=== PATIENT | male | born 1985 | race African-American/Black ===

== ENCOUNTER 2018-07-20 06:07 | Emergency (ER) | payer OTHER ==
[~2018-07-20] VITALS: Ht 182.9 cm; Wt 83.9 kg
[~2018-07-20 06:07] MED LIST: BACTRIM DS TAB1 EAC1 ORAL; CEPHALEXIN500 MG ORAL; PHENAZOPYRIDIN100 MG ORAL
[2018-07-20] MEDS ORDERED: HYDROCHLOROTHIA25 MG ORAL (06:20)
[2018-07-20] MEDS ORDERED: LISINOPRIL20 MG ORAL (06:20)
[2018-07-20] MEDS ORDERED: HYDROCHLOROTH12.5 MG ORAL (06:20)
[2018-07-20 06:30] VITALS: BP 151/93
[2018-07-20 06:42] LABS: APPEARANCE,URINE CLEAR; BILIRUBIN, URINE NEGATIVE (NEGATIVE); GLUCOSE, URINE (UA) NEGATIVE (NEGATIVE); KETONES,URINE NEGATIVE (NEGATIVE); LEUKOCYTE ESTERASE ,URINE 1+ (NEGATIVE); PH,URINE 5 (4.5-8.0); PROTEIN,URINE 4+ (NEGATIVE); UROBILINOGEN,URINE NORMAL MG/DL (0.0-1.0)
[2018-07-20] MEDS ORDERED: Cephalexin 500mg cap ORAL ONE (06:45)
[2018-07-20] MEDS ORDERED: PHENAZOPYRIDIN200 MG ORAL (06:45)
[2018-07-20] MEDS ORDERED: Naproxen 500mg tab ORAL ONE (06:45)
[2018-07-20] MEDS ORDERED: CEPHALEXIN500 MG ORAL (06:45)
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
[2018-07-20] MEDS ORDERED: Naproxen 500mg tab ONE (07:02)
[2018-07-20] MEDS ORDERED: Cephalexin 500mg cap ONE (07:02)
[2018-07-20 07:03] LABS: COLOR,URINE ORANGE
[2018-07-20 07:04] LABS: NITRITE,URINE NEGATIVE (NEGATIVE)
[2018-07-20 07:30] VITALS: BP 145/89
[2018-07-20] MEDS ORDERED: Morphine Sulfate 4mg/ml Inj (IV/IM USE ONLY) IM ONE (07:30)
[2018-07-20] MEDS ORDERED: PERCOCET 5-3251 EACH ORAL (07:30)
[2018-07-20] MEDS ORDERED: Morphine Sulfate 4mg/ml Inj (IV/IM USE ONLY) ONE (07:37)
[2018-07-20 07:50] VITALS: BP 145/89
== END 2018-07-20 07:50 | disposition home or self-care (01) ==
LOC: EMR 06:32
DX: N39.0 Urinary tract infection, site not specified (principal); Z93.3 Colostomy status; I10 Essential (primary) hypertension; Q79.4 Prune belly syndrome
CPT/HCPCS: 81003; 96372; 99283; J2270

== ENCOUNTER 2018-09-15 14:11 | Emergency (ER) | payer OTHER ==
[~2018-09-15] VITALS: Ht 182.9 cm; Wt 81.6 kg
[~2018-09-15 14:11] MED LIST changes: +HYDROCHLOROTH12.5 MG ORAL; +HYDROCHLOROTHIA25 MG ORAL; +LEVAQUIN500 MG ORAL; +LISINOPRIL20 MG ORAL; +PERCOCET 5-3251 EACH ORAL; +PHENAZOPYRIDIN200 MG ORAL; +TRIM
[2018-09-15 14:45] LABS: APPEARANCE,URINE CLOUDY; BILIRUBIN, URINE NEGATIVE (NEGATIVE); GLUCOSE, URINE (UA) NEGATIVE (NEGATIVE); KETONES,URINE NEGATIVE (NEGATIVE); LEUKOCYTE ESTERASE ,URINE 3+ (NEGATIVE); NITRITE,URINE POSITIVE (NEGATIVE); PH,URINE 6.5 (4.5-8.0); PROTEIN,URINE 4+ (NEGATIVE); UROBILINOGEN,URINE NORMAL MG/DL (0.0-1.0)
[2018-09-15] MEDS ORDERED: Lidocaine 1% MPF 10mg/ml 5ml INJ ONE (14:45)
[2018-09-15] MEDS ORDERED: NAPROXEN500 M2 ORAL (14:56)
--- NOTE | 2018-09-15 14:56 | Emergency Room Report ---
History of Present Illness General Chief Complaint: Male Urogenital Problems Source: Patient Present Illness HPI 32-year-old male with history of recurrent urinary tract infection here complaining of painful urination 2 days and penile discharge. Patient reports that he was sexually active with a new partner not using condoms 2 days ago. Nasal suprapubic pain however denies flank pain, nausea, vomiting, abdominal pain. Patient reports that she has been getting recurrent urinary tract infections since the age of 8. Denies any visits to urologist and reports that he always gets treated with antibiotic, pain medication. She is rating pain 10 out of 10. CURES was done and showed extensive history of oxycodone use with the latest refill on August 12. Patient reports that he has always been prescribed oxycodone and different emergency rooms for his pain secondary to his UTIs. 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 Hx Hypertension: Yes Hx Pacemaker: No Hx Asthma: No Hx COPD: No Hx Diabetes: No Hx Cancer: No Hx Dialysis: No Hx Neurological Problems: No Hx Cerebrovascular Accident: No Hx Seizures: No Review of Systems All Other Systems: negative except mentioned in HPI Physical Exam Vital Signs Date Time Temp Pulse Resp B/P (MAP) Pulse Ox O2 Delivery O2 Flow Rate FiO2 09/15/18 14:13 98.1 87 20 136/79 96 Room Air Sp02 EP Interpretation: reviewed, normal General Appearance: normal inspection, well appearing, no apparent distress, alert Head: normocephalic, atraumatic Eyes: bilateral eye normal inspection, bilateral eye PERRL ENT: normal ENT inspection, normal pharynx Neck: normal inspection, supple Respiratory: normal inspection, lungs clear, no wheezing Cardiovascular #1: normal inspection, no edema, no murmur Gastrointestinal: normal inspection, non tender, soft Rectal: deferred Genitourinary: no CVA tenderness Musculoskeletal: normal inspection, digits/nails normal Neurologic: normal inspection, alert, responsive, sensory intact Psychiatric: normal inspection, judgement/insight normal Skin: normal inspection, normal color, no rash Lymphatic: normal inspection, no adenopathy Medical Decision Making PA Attestation all diagnoses and treatment plans reviewed discuss medicine was an physician Dr. Millan Diagnostic Impression: Primary Impression: UTI (urinary tract infection) Additional Impressions: Penile discharge Opiate dependence Drug-seeking behavior ER Course 32-year-old male with history of recurrent urinary tract infection here complaining of painful urination 2 days and penile discharge. Patient reports that he was sexually active with a new partner not using condoms 2 days ago. Nasal suprapubic pain however denies flank pain, nausea, vomiting, abdominal pain. Patient reports that she has been getting recurrent urinary tract infections since the age of 8. Denies any visits to urologist and reports that he always gets treated with antibiotic, pain medication. She is rating pain 10 out of 10. CURES was done and showed extensive history of oxycodone use with the latest refill on August 12. Patient reports that he has always been prescribed oxycodone and different emergency rooms for his pain secondary to his UTIs. Ddx considered but are not limited to UTI, pylonephritis, prostatitis, chroinic UTI Vital signs: are WNL, pt. is afebrile H&PE are most consistent with UTI, opiate dependence ORDERS: rocephin, 1g, bactrim DS x7d, Nparoxen, UA, urine cx GC chlamydia ED INTERVENTIONS: None required at this time. DISCHARGE: At this time pt. is stable for d/c to home. Will provide printed patient care instructions, and any necessary prescriptions. Care plan and follow up instructions have been discussed with the patient prior to discharge. patient has been explained that naproxen should be enough for his pain level patient gets consisting on having his usual pain medication which is oxycodone. patient if insisting on getting a prescription for oxycodone he has an appointment with his primary care provider tomorrow. he reports that he usually is able to get his oxycodone from the emergency room and refuses to go see a urologist CURES showed extensive oxycodone hx from different providers. patient is yelling and saying he is not getting right tx. patient given dicharge papers, stable to leave. abx enough for UTI and possible STI Last Vital Signs Date Time Temp Pulse Resp B/P (MAP) Pulse Ox O2 Delivery O2 Flow Rate FiO2 09/15/18 14:13 98.1 87 20 136/79 96 Room Air Disposition: HOME, SELF-CARE Condition: Stable Scripts Trimethoprim/Sulfamethoxazole (Bactrim Ds Tablet) 1 Each Tablet 1 TAB ORAL TWICE A DAY for 7 Days, #14 TAB Prov: Maday Huffman 09/15/18 Naproxen* (NAPROXEN*) 500 Mg Tablet 500 MG ORAL TWICE A DAY, #30 TAB Prov: Maday Huffman 09/15/18 Patient Instructions: Urethritis, Adult, Urinary Tract Infection Additional Instructions: follow with her primary care provider and possible referral to urologist due to recurrent urinary tract infections Maday Huffman Sep 15, 2018 14:56
[2018-09-15 14:58] LABS: COLOR,URINE YELLOW
[2018-09-15] MEDS ORDERED: BACTRIM-DS1 EA ORAL (15:13)
[2018-09-15 15:38] VITALS: BP 136/79
--- NOTE | 2018-09-15 15:39 | NUR ---
ED Nurse Note:pt. was treated by er PA he received d/c instruxctions with prescriptions and left ER with steady gait
[2018-09-15 15:45] VITALS: BP 136/79
== END 2018-09-15 15:46 | disposition home or self-care (01) ==
LOC: EMR 15:00
DX: N39.0 Urinary tract infection, site not specified (principal); R36.9 Urethral discharge, unspecified; F11.20 Opioid dependence, uncomplicated; Z76.5 Malingerer [conscious simulation]; I10 Essential (primary) hypertension
CPT/HCPCS: 81001; 87086; 87491; 87590; 96372; 96374; 99284; J0696

== ENCOUNTER 2018-10-25 21:29 | Emergency (ER) | payer OTHER ==
[~2018-10-25] VITALS: Ht 182.9 cm; Wt 90.7 kg
[~2018-10-25 21:29] MED LIST changes: +BACTRIM-DS1 EA ORAL; +NAPROXEN500 M2 ORAL
[2018-10-25 22:25] VITALS: BP 145/90
[2018-10-25] MEDS ORDERED: HYDROcodone/Acetamin 5/325 tab ORAL ONE (22:30)
[2018-10-25] MEDS ORDERED: Levofloxacin 500mg tab ORAL ONE (22:30)
[2018-10-25] MEDS ORDERED: LEVAQUIN500 MG ORAL (22:35)
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
[2018-10-25 22:40] VITALS: BP 145/90
== END 2018-10-25 23:00 | disposition home or self-care (01) ==
LOC: EMR 23:00
DX: N39.0 Urinary tract infection, site not specified (principal); I10 Essential (primary) hypertension; N31.9 Neuromuscular dysfunction of bladder, unspecified; G83.89 Other specified paralytic syndromes; G83.9 Paralytic syndrome, unspecified
CPT/HCPCS: 87086; 99282

== ENCOUNTER 2019-02-10 21:10 | Emergency (ER) | payer OTHER ==
[~2019-02-10] VITALS: Ht 182.9 cm; Wt 86.2 kg
[2019-02-10 21:15] VITALS: BP 122/74
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
[2019-02-10] MEDS ORDERED: HYDROCODON-ACE1 EA15 ORAL (21:27)
[2019-02-10] MEDS ORDERED: IBUPROFEN600 MG ORAL (21:27)
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
[2019-02-10 21:30] VITALS: BP 125/72
[2019-02-10] MEDS ORDERED: HYDROcodone/Acetamin 5/325 tab ORAL ONE (21:30)
--- NOTE | 2019-02-10 21:30 | NUR ---
ER DISCHARGE NOTE: Patient is cleared to be discharged per ERMD, pt is aox4, on room air, with stable vital signs. pt was given dc and prescription instructions, pt was able to verbalize understanding, pt id band removed without complications. pt is able to ambulate with steady gait. pt took all belongings.
== END 2019-02-10 21:30 | disposition home or self-care (01) ==
LOC: EMR 21:22
DX: S39.012A Strain of muscle, fascia and tendon of lower back, initial encounter (principal); V43.52XA Car driver injured in collision with other type car in traffic accident, initial encounter; Y92.410 Unspecified street and highway as the place of occurrence of the external cause; I10 Essential (primary) hypertension
CPT/HCPCS: 99282